=== PATIENT | female | born 1990 | race Two or more races ===

== ENCOUNTER 2018-08-17 18:33 | Emergency (ER) | payer OTHER ==
[~2018-08-17] VITALS: Ht 165.1 cm; Wt 66.7 kg
--- NOTE | 2018-08-17 18:44 | NUR ---
PT IS IN ROOM #2B. DR MCDONALD EVALUATED THE PT.
[2018-08-17] MEDS: DICYCLOMINE HCL 10 MG/5 ML UDC LIQ PO ONE (19:01)
--- NOTE | 2018-08-17 19:02 | NUR ---
PT WAS D/C TO HOME. D/C INSTRUCTIONS GIVEN TO THE PT.
[2018-08-17 19:07] VITALS: BP 125/74
== END 2018-08-17 19:08 | disposition home or self-care (01) ==
LOC: ER 18:37
DX: R10.9 Unspecified abdominal pain (principal); R19.7 Diarrhea, unspecified
CPT/HCPCS: A4663